=== PATIENT | female | born 2005 | race Caucasian/White ===

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

== ENCOUNTER 2024-09-30 09:00 | Outpatient (RCR) | payer BC, OTHER, SELFPAY | END 2024-11-19 10:47 | disposition home or self-care (01) | PROVIDERS: PCP Family Medicine; Visit Provider Family Medicine | DX: M25.512 Pain in left shoulder (principal); M24.212 Disorder of ligament, left shoulder; R53.1 Weakness; M62.9 Disorder of muscle, unspecified; Z51.89 Encounter for other specified aftercare | CPT/HCPCS: 97110; 97140; 97161 ==

== ENCOUNTER 2025-04-02 11:08 | Outpatient (CLI) | payer OTHER, SELFPAY | END 2025-04-02 11:09 | disposition home or self-care (01) | LOC: NFLDUCREF 11:08 | PROVIDERS: PCP Family Medicine; Visit Provider Physician Assistant Surgical | DX: L02.215 Cutaneous abscess of perineum (principal); B96.89 Other specified bacterial agents as the cause of diseases classified elsewhere | CPT/HCPCS: 87070 ==